=== PATIENT | female | born 1970 | race African-American/Black ===

== ENCOUNTER 2016-09-11 03:17 | Emergency (ER) | payer MEDICARE, MEDICAID ==
[~2016-09-11] VITALS: Ht 162.6 cm; Wt 78.0 kg
[~2016-09-11 03:17] MED LIST: AMOX/K CLAV875 M1 PO; AMOXICILLIN500 MG PO; AUGMENTIN500TAB PO; BENADRYL 50MG C50 MG OR; CIPRO500 MG OR; DIFLUCAN150 MG PO; DOXYCYCL HYC100 M4 PO; FLAGYL500 MG PO; LORTAB 7.5 PO; MEDDOSEPAK OR; NO CURRENT MEDS; NO HOME MEDS; NYSTATIN100000 MG VA; PYRIDIUM200 MG OR; RISPERDAL2 MG PO; SEROQUEL100 MG PO; TYLENOL # 31 TA1 OR; ZPAK OR
[2016-09-11] MEDS ORDERED: (None)3.5 GM OD (04:00)
[2016-09-11] MEDS ORDERED: CEPHALEXIN500 MG PO (04:00)
[2016-09-11] MEDS ORDERED: GENTAMICIN15 ML/BTL OD (04:00)
[2016-09-11 04:03] VITALS: BP 127/84
== END 2016-09-11 04:05 | disposition home or self-care (01) ==
LOC: ED 03:17
DX: H01.001 Unspecified blepharitis right upper eyelid (principal); F20.9 Schizophrenia, unspecified; F17.210 Nicotine dependence, cigarettes, uncomplicated

== ENCOUNTER 2016-10-31 03:04 | Emergency (ER) | payer MEDICARE, MEDICAID ==
[~2016-10-31] VITALS: Ht 162.6 cm; Wt 72.7 kg
[~2016-10-31 03:04] MED LIST changes: +(None)3.5 GM OD; +CEPHALEXIN500 MG PO; +GENTAMICIN15 ML/BTL OD
[2016-10-31 03:27] VITALS: BP 121/84
== END 2016-10-31 03:40 | disposition home or self-care (01) ==
LOC: ED 03:04
DX: S80.11XA Contusion of right lower leg, initial encounter (principal); Y04.2XXA Assault by strike against or bumped into by another person, initial encounter; Y92.009 Unspecified place in unspecified non-institutional (private) residence as the place of occurrence of the external cause; Z91.19 Patient's noncompliance with other medical treatment and regimen

== ENCOUNTER 2016-11-20 05:36 | Emergency (ER) | payer MEDICARE, MEDICAID | END 2016-11-20 05:40 | disposition left against medical advice (07) | LOC: ED 05:36 → LWOBS 05:40 | DX: Z91.19 Patient's noncompliance with other medical treatment and regimen (principal) ==

== ENCOUNTER 2016-12-19 21:35 | Emergency (ER) | payer MEDICARE, MEDICAID ==
[~2016-12-19] VITALS: Ht 162.6 cm; Wt 69.8 kg
[2016-12-19] MEDS ORDERED: BENADRYL 50MG C50 MG PO (22:33)
[2016-12-19] MEDS ORDERED: AMOXICILLIN500 MG PO (22:33)
[2016-12-19 22:57] VITALS: BP 123/84
== END 2016-12-19 23:00 | disposition home or self-care (01) ==
LOC: ED 21:35
DX: T63.421A Toxic effect of venom of ants, accidental (unintentional), initial encounter (principal); L03.116 Cellulitis of left lower limb; L03.115 Cellulitis of right lower limb; Y92.009 Unspecified place in unspecified non-institutional (private) residence as the place of occurrence of the external cause

== ENCOUNTER 2016-12-21 04:01 | Emergency (ER) | payer MEDICARE, MEDICAID ==
[~2016-12-21] VITALS: Ht 162.6 cm; Wt 75.0 kg
[~2016-12-21 04:01] MED LIST changes: +BENADRYL 50MG C50 MG PO
[2016-12-21] MEDS ORDERED: NAPROSYN500 MG PO (04:59)
[2016-12-21 05:14] VITALS: BP 104/74
== END 2016-12-21 05:15 | disposition home or self-care (01) ==
LOC: ED 04:01
DX: S00.93XA Contusion of unspecified part of head, initial encounter (principal); S16.1XXA Strain of muscle, fascia and tendon at neck level, initial encounter; Y04.8XXA Assault by other bodily force, initial encounter; Y92.000 Kitchen of unspecified non-institutional (private) residence as the place of occurrence of the external cause

== ENCOUNTER 2017-04-08 06:25 | Emergency (ER) | payer MEDICARE, MEDICAID ==
[~2017-04-08] VITALS: Ht 162.6 cm; Wt 63.6 kg
[~2017-04-08 06:25] MED LIST changes: +FIORICET PO; +NAPROSYN500 MG PO
[2017-04-08 06:58] LABS: URINE BILIRUBIN - DIPSTICK NEGATIVE (NEGATIVE); URINE BLOOD DIPSTICK SMALL (NEGATIVE); URINE CLARITY CLEAR; URINE COLOR YELLOW; URINE GLUCOSE - DIPSTICK NEGATIVE (NEGATIVE); URINE KETONE NEGATIVE (NEGATIVE); URINE LEUK ESTERASE NEGATIVE (NEGATIVE); URINE NITRITE - DIPSTICK NEGATIVE (Negative); URINE PH 7.5 (4.5-8.0); URINE PROTEIN - DIPSTICK NEGATIVE (NEG-TRACE); URINE SPECIFIC GRAVITY 1.015
[2017-04-08] MEDS ORDERED: CIPROFLOXACN500 MG PO (07:04)
[2017-04-08 07:10] VITALS: BP 115/72
[2017-04-08 07:11] LABS: URINE BACTERIA FEW hpf; URINE SQUAMOUS EPITHELIAL CELL FEW EPI/hpf (0-FEW); URINE WBC 0-2 WBC/hpf (0-5)
== END 2017-04-08 07:16 | disposition home or self-care (01) ==
LOC: ED 06:25
PROVIDERS: Emergency Medicine
DX: N30.90 Cystitis, unspecified without hematuria (principal); F20.9 Schizophrenia, unspecified

== ENCOUNTER 2017-06-05 06:30 | Emergency (ER) | payer MEDICARE, MEDICAID ==
[~2017-06-05] VITALS: Ht 162.6 cm; Wt 66.0 kg
[~2017-06-05 06:30] MED LIST changes: +CIPROFLOXACN500 MG PO
[2017-06-05] MEDS ORDERED: MEDDOSEPAK PO (06:54)
[2017-06-05 07:18] VITALS: BP 123/76
== END 2017-06-05 07:21 | disposition home or self-care (01) ==
LOC: ED 06:30
DX: R21 Rash and other nonspecific skin eruption (principal); L29.9 Pruritus, unspecified

== ENCOUNTER 2017-06-12 13:44 | Emergency (ER) | payer MEDICARE, MEDICAID ==
[~2017-06-12] VITALS: Ht 162.6 cm; Wt 66.0 kg
[~2017-06-12 13:44] MED LIST changes: +MEDDOSEPAK PO
[2017-06-12 14:29] LABS: HEMOGLOBIN 9.7 g/dl (12.0-16.0); IMMATURE GRANULOCYTES 0.4 % (0.0-1.0); MEAN CELL VOLUME 91.8 fL CALC (80.0-100.0); MEAN CORPUSCULAR HGB 30.7 pG CALC (26.0-32.0); MEAN CORPUSCULAR HGB CONC 33.4 g/L CALC (32.0-36.0); NEUT# 3.71 thou/uL (2.00-7.15); RED BLOOD COUNT 3.16 mill/uL (4.20-5.60); RED CELL DISTRI WIDTH 14.9 % (11.5-15.5)
[2017-06-12 14:50] LABS: ALBUMIN 3.7 g/dL (3.2-5.0); ALKALINE PHOSPHATASE 83 u/l (38-126); AMYLASE 41 u/l (30-110); ANION GAP 14 (6-22 (CALC)); BILIRUBIN, TOTAL 0.3 mg/dL (0.0-1.4); BUN 13 mg/dL (7-17); BUN/CREATININE RATIO 14 (12-20 (CALC)); CALCIUM 9.6 mg/dL (8.4-10.2); CARBON DIOXIDE 25 mmol/l (22-30); CHLORIDE 106 mmol/l (95-108); CREATININE 0.9 mg/dL (0.5-1.0); GFR > 60 ML/MIN (>=60 (CALC)); GFR FOR AFR.AMER. > 60 ML/MIN (>=60 (CALC)); GLUCOSE 98 mg/dL (65-105); LIPASE 43 u/l (23-300); POTASSIUM 4.7 mmol/l (3.5-5.1); SGOT/AST 28 u/l (14-36); SGPT/ALT 28 u/l (9-52); SODIUM 140 mmol/l (137-146); TOTAL PROTEIN 6.5 g/dL (6.3-8.2)
[2017-06-12 14:57] LABS: URINE BILIRUBIN - DIPSTICK NEGATIVE (NEGATIVE); URINE BLOOD DIPSTICK TRACE-INTACT (NEGATIVE); URINE CLARITY CLEAR; URINE COLOR YELLOW; URINE GLUCOSE - DIPSTICK NEGATIVE (NEGATIVE); URINE KETONE NEGATIVE (NEGATIVE); URINE LEUK ESTERASE NEGATIVE (NEGATIVE); URINE NITRITE - DIPSTICK NEGATIVE (Negative); URINE PH 6.5 (4.5-8.0); URINE PROTEIN - DIPSTICK NEGATIVE (NEG-TRACE); URINE SPECIFIC GRAVITY 1.015; URINE UROBILINOGEN - DIPSTICK 0.2 E.U./dL (0.2)
[2017-06-12 16:13] LABS: INFLUENZA A NONE DETECTED (NONE DETECT); INFLUENZA B NONE DETECTED (NONE DETECT)
[2017-06-12] MEDS ORDERED: ULTRAM50 M1 PO (16:18)
[2017-06-12] MEDS ORDERED: ZOFRAN ODT4 MG PO (16:18)
[2017-06-12 16:31] VITALS: BP 124/79
[2017-06-13] MEDS ORDERED: PERCOCET 5/325M1 TAB PO (15:26)
== END 2017-06-12 16:49 | disposition home or self-care (01) ==
LOC: ED 13:44
PROVIDERS: Emergency Medicine
DX: B34.9 Viral infection, unspecified (principal); R51 Headache; R50.9 Fever, unspecified; R11.2 Nausea with vomiting, unspecified; R10.32 Left lower quadrant pain; R10.31 Right lower quadrant pain; R05 Cough

== ENCOUNTER 2017-06-13 12:33 | Emergency (ER) | payer MEDICARE, MEDICAID ==
[~2017-06-13] VITALS: Ht 162.6 cm; Wt 70.0 kg
[~2017-06-13 12:33] MED LIST changes: +ULTRAM50 M1 PO; +ZOFRAN ODT4 MG PO
[2017-06-13 15:14] LABS: URINE BILIRUBIN - DIPSTICK NEGATIVE (NEGATIVE); URINE BLOOD DIPSTICK SMALL (NEGATIVE); URINE COLOR YELLOW; URINE GLUCOSE - DIPSTICK NEGATIVE (NEGATIVE); URINE KETONE NEGATIVE (NEGATIVE); URINE LEUK ESTERASE NEGATIVE (NEGATIVE); URINE NITRITE - DIPSTICK NEGATIVE (Negative); URINE PROTEIN - DIPSTICK NEGATIVE (NEG-TRACE); URINE SPECIFIC GRAVITY >=1.030; URINE UROBILINOGEN - DIPSTICK 0.2 E.U./dL (0.2)
[2017-06-13 15:15] LABS: URINE CLARITY CLEAR; URINE SQUAMOUS EPITHELIAL CELL FEW EPI/hpf (0-FEW); URINE WBC 0-2 WBC/hpf (0-5)
[2017-06-13] MEDS ORDERED: PERCOCET 5/325M1 TAB PO (15:26)
[2017-06-13 15:42] VITALS: BP 133/66
== END 2017-06-13 15:44 | disposition home or self-care (01) ==
LOC: ED 12:33
PROVIDERS: Emergency Medicine
DX: R51 Headache (principal); R10.30 Lower abdominal pain, unspecified

== ENCOUNTER 2022-08-07 02:14 | Emergency (ER) | payer SELFPAY ==
[~2022-08-07] VITALS: Ht 162.6 cm; Wt 72.0 kg
[~2022-08-07 02:14] MED LIST changes: +PERCOCET 5/325M1 TAB PO
[2022-08-07 02:47] LABS: URINE BLOOD DIPSTICK LARGE (NEGATIVE); URINE COLOR YELLOW; URINE GLUCOSE - DIPSTICK NEGATIVE (NEGATIVE); URINE KETONE 40 mg/dL (NEGATIVE); URINE LEUK ESTERASE NEGATIVE (NEGATIVE); URINE PROTEIN - DIPSTICK NEGATIVE (NEG-TRACE); URINE SPECIFIC GRAVITY >=1.030; URINE UROBILINOGEN - DIPSTICK 0.2 E.U./dL (0.2)
[2022-08-07 02:52] LABS: URINE BILIRUBIN - DIPSTICK SMALL (NEGATIVE)
[2022-08-07 02:53] LABS: URINE NITRITE - DIPSTICK NEGATIVE (Negative)
[2022-08-07 03:04] LABS: URINE SQUAMOUS EPITHELIAL CELL FEW EPI/hpf (0-FEW); URINE WBC 0-2 WBC/hpf (0-5)
[2022-08-07 03:14] VITALS: BP 117/68
== END 2022-08-07 03:15 | disposition home or self-care (01) | DRG 759 ==
LOC: ED 02:14
PROVIDERS: Family Medicine
DX: L29.2 Pruritus vulvae (principal)